=== PATIENT | male | born 2000 | race Two or more races ===

== ENCOUNTER 2020-12-10 09:21 | Emergency (ER) | payer MEDICAID, OTHER ==
[~2020-12-10] VITALS: Ht 170.2 cm; Wt 54.4 kg
[2020-12-10 10:47] VITALS: BP 135/89
== END 2020-12-10 11:42 | disposition home or self-care (01) ==
LOC: ER 09:21 → EDBD 09:21 → ER 11:38
DX: S83.91XA Sprain of unspecified site of right knee, initial encounter (principal); S50.01XA Contusion of right elbow, initial encounter; S40.021A Contusion of right upper arm, initial encounter; F12.10 Cannabis abuse, uncomplicated; Z88.0 Allergy status to penicillin; V43.52XA Car driver injured in collision with other type car in traffic accident, initial encounter; Y93.89 Activity, other specified; Y92.410 Unspecified street and highway as the place of occurrence of the external cause; Y99.8 Other external cause status
CPT/HCPCS: 29505; 73060; 73080; 73562